=== PATIENT | female | born 1970 | race Caucasian/White ===

== ENCOUNTER 2020-10-03 11:09 | Emergency (ER) | payer OTHER ==
[~2020-10-03] VITALS: Ht 165.1 cm; Wt 72.7 kg
[2020-10-03 12:53] LABS: EOSINOPHILS # (AUTO) 0.1 X10'3 (0-0.9)
[2020-10-03 12:54] LABS: BASOPHILS % (AUTO) 0.3 % (0-1); LYMPHOCYTES # (AUTO) 5.3 X10'3 (1.1-4.8); LYMPHOCYTES % (AUTO) 37.1 % (21-51); MEAN PLATELET VOLUME 8.8 FL (7.4-10.4); MONOCYTES % (AUTO) 6.7 % (2-12); NEUTROPHILS # (AUTO) 7.9 X10'3 (1.8-7.7); NEUTROPHILS % (AUTO) 54.9 % (42-75); PLATELET COUNT 608 X10'3 (140-440); WHITE BLOOD COUNT 14.3 X10'3 (4.5-11.0)
[2020-10-03 13:17] LABS: HEMATOCRIT 34.5 % (35.0-45.0); MEAN CORPUSCULAR HEMOGLOBIN 19.3 PG (27.0-31.0); MEAN CORPUSCULAR HGB CONC 31.8 g/dL (33.0-36.5); MEAN CORPUSCULAR VOLUME 60.6 FL (78-98); RED BLOOD COUNT 5.68 X10'6 (4.20-5.60); RED CELL DISTRIBUTION WIDTH 19.3 % (11.5-14.5)
[2020-10-03 13:19] LABS: ALANINE AMINOTRANSFERASE 21 U/L (12-78); ALBUMIN 3.8 G/DL (3.4-5.0); ALBUMIN/GLOBULIN RATIO 0.8 (1.1-1.5); ALKALINE PHOSPHATASE 94 IU/L (46-116); ANION GAP 10 (8-16); ASPARTATE AMINO TRANSFERASE 10 U/L (10-37); BILIRUBIN,TOTAL 0.6 MG/DL (0.1-1.0); CALCIUM 10.1 MG/DL (8.5-10.1); CHLORIDE 100 MMOL/L (99-107); CREATININE 0.85 MG/DL (0.40-0.90); GLUCOSE 182 MG/DL (70-104); LIPASE 164 U/L (73-393); POTASSIUM 3.7 MMOL/L (3.5-5.1); SODIUM 136 MMOL/L (135-145); TOTAL CARBON DIOXIDE 26.1 MMOL/L (24-32); TOTAL PROTEIN 8.3 G/DL (6.4-8.2); eGFR 71 ML/MIN
[2020-10-03 13:21] LABS: BLOOD UREA NITROGEN 12 MG/DL (7-18); BUN/CREATININE RATIO 14.1 (6.6-38.0)
[2020-10-03 13:26] LABS: ANISOCYTOSIS 3+; HYPOCHROMASIA 2+; MICROCYTOSIS 2+; PLATELET ESTIMATE INCREASED; POIKILOCYTOSIS 1+; SCHISTOCYTES FEW
--- NOTE | 2020-10-03 14:51 | NUR ---
PT SEEN AND DC'D BY PROVIDER
[2020-10-03 14:52] VITALS: BP 127/76
[2020-10-04 06:22] LABS: OCCULT BLOOD STOOL NEGATIVE (Neg)
== END 2020-10-03 14:53 | disposition home or self-care (01) ==
LOC: ER 11:09
DX: R10.30 Lower abdominal pain, unspecified (principal); K59.00 Constipation, unspecified; R11.0 Nausea; E11.9 Type 2 diabetes mellitus without complications; F41.9 Anxiety disorder, unspecified; F17.200 Nicotine dependence, unspecified, uncomplicated; Z86.2 Personal history of diseases of the blood and blood-forming organs and certain disorders involving the immune mechanism; Z88.2 Allergy status to sulfonamides
CPT/HCPCS: 36415; 80053; 82272; 83690; 85008; 85025; 99283

== ENCOUNTER 2020-10-12 02:17 | Emergency (ER) | payer OTHER ==
[~2020-10-12] VITALS: Ht 162.6 cm; Wt 65.0 kg
[2020-10-12] MEDS ORDERED: insulin regular, human 10 units/0.1 ml syringe IV ONE (02:45)
[2020-10-12] MEDS ORDERED: normal saline 1000ML IV soln IVB ONE (02:45)
[2020-10-12 03:02] LABS: CLARITY,URINE CLEAR (Clear); COLOR,URINE STRAW (Yellow); GLUCOSE, URINE >=1000 mg/dl (Neg); KETONES,URINE NEGATIVE (Neg); LEUKOCYTE ESTERASE ,URINE NEGATIVE (Neg); NITRITES, URINE NEGATIVE (Neg); OCCULT BLOOD,URINE LARGE (Neg); PROTEIN,URINE NEGATIVE (Neg); UROBILINOGEN,URINE 0.2 E.U/dL (0.2-1.0)
[2020-10-12 03:07] LABS: BACTERIA,URINE FEW /HPF (Neg); RBC,URINE 0-2 /HPF (0-2); SQUAMOUS EPITHELIAL CELL,UR FEW /LPF (FEW); UA COLLECTION TYPE NON-SPECIFIED; WBC,URINE 0-4 /HPF (0-4)
[2020-10-12 03:11] LABS: URINE AMPHETAMINE SCREEN NEGATIVE (Neg); URINE BARBITUATE SCREEN NEGATIVE (Neg); URINE BENZODIAZEPINES SCREEN NEGATIVE (Neg); URINE CANNABINOID SCREEN POSITIVE (Neg); URINE COCAINE SCREEN NEGATIVE (Neg); URINE METHADONE SCREEN NEGATIVE (Neg); URINE OPIATE SCREEN NEGATIVE (Neg); URINE PHENCYCLIDINE SCREEN NEGATIVE (Neg)
[2020-10-12 03:35] VITALS: BP 158/84
[2020-10-12 03:48] LABS: BASOPHILS % (AUTO) 0.5 % (0-1); EOSINOPHILS % (AUTO) 0.1 % (0-6); LYMPHOCYTES # (AUTO) 1.5 X10'3 (1.1-4.8); LYMPHOCYTES % (AUTO) 15.6 % (21-51); MEAN CORPUSCULAR VOLUME 63.4 FL (78-98); MEAN PLATELET VOLUME 8.3 FL (7.4-10.4); MONOCYTES # (AUTO) 0.1 X10'3 (0-0.9); MONOCYTES % (AUTO) 1.1 % (2-12); NEUTROPHILS # (AUTO) 7.7 X10'3 (1.8-7.7); NEUTROPHILS % (AUTO) 82.7 % (42-75); PLATELET COUNT 455 X10'3 (140-440); RED CELL DISTRIBUTION WIDTH 21.3 % (11.5-14.5); WHITE BLOOD COUNT 9.3 X10'3 (4.5-11.0)
[2020-10-12 03:59] LABS: ALANINE AMINOTRANSFERASE 17 U/L (12-78); ALBUMIN 3.3 G/DL (3.4-5.0); ALBUMIN/GLOBULIN RATIO 0.8 (1.1-1.5); ALKALINE PHOSPHATASE 90 IU/L (46-116); ANION GAP 11 (8-16); ASPARTATE AMINO TRANSFERASE 16 U/L (10-37); BILIRUBIN,TOTAL 0.3 MG/DL (0.1-1.0); BLOOD UREA NITROGEN 13 MG/DL (7-18); BUN/CREATININE RATIO 12.5 (6.6-38.0); CALCIUM 9.2 MG/DL (8.5-10.1); CHLORIDE 100 MMOL/L (99-107); CREATININE 1.04 MG/DL (0.40-0.90); ETHANOL 0.074 GM/DL (0.0-0.010); POTASSIUM 4.3 MMOL/L (3.5-5.1); SODIUM 134 MMOL/L (135-145); TOTAL CARBON DIOXIDE 22.8 MMOL/L (24-32); TOTAL PROTEIN 7.3 G/DL (6.4-8.2); eGFR 56 ML/MIN
[2020-10-12 04:02] LABS: GLUCOSE 553 MG/DL (70-104)
[2020-10-12 04:09] LABS: HEMATOCRIT 27.8 % (35.0-45.0); RED BLOOD COUNT 4.57 X10'6 (4.20-5.60)
[2020-10-12 04:10] LABS: MEAN CORPUSCULAR HEMOGLOBIN 19.8 PG (27.0-31.0); MEAN CORPUSCULAR HGB CONC 32.5 g/dL (33.0-36.5)
[2020-10-12 04:31] LABS: ANISOCYTOSIS 3+; ELLIPTOCYTES FEW; HYPOCHROMASIA 1+; MICROCYTOSIS 2+; PLATELET ESTIMATE INCREASED; TEAR DROP CELLS FEW
== END 2020-10-12 04:32 ==
LOC: ER 02:18
DX: E10.65 Type 1 diabetes mellitus with hyperglycemia (principal); F10.120 Alcohol abuse with intoxication, uncomplicated; F12.10 Cannabis abuse, uncomplicated; Z88.2 Allergy status to sulfonamides
CPT/HCPCS: 36415; 80053; 80305; 80320; 81001; 82948; 85008; 85025; 96361; 96374; 99283; J1815; J7030